=== PATIENT | male | born 1955 | race Caucasian/White ===

== ENCOUNTER 2016-06-21 17:44 | Observation (INO) | payer OTHER ==
[~2016-06-21] VITALS: Ht 182.9 cm; Wt 108.1 kg
[~2016-06-21 17:44] MED LIST: ONDANSETRON HCL 4 MG/2 ML VIAL IV PUSH ONE; PHENYLEPH/NS 1000 MCG/10 ML SYR IV ONE; PROPOFOL 200 MG/20 ML AMP IV ONE; ePHEDrine/NS 25 MG/5 ML SYR IV ONE
[2016-06-21 17:47] VITALS: BP 138/80; PULSE 84; RESP 20; TEMP 97.5; O2SAT 100
--- NOTE | 2016-06-21 17:54 | PD ---
Physical Exam Time Seen by Provider: 17:51 Narrative 60 year old presents with injury to L thumb from a table saw injury. Went to [facility], had xray, tetanus shot, morphine, reports "bone injury" and told to come here for hand sx evaluation. VSS Seen at triage desk. Awaiting bed placement. Data Data Last Documented VS Vital Signs Date Time Temp Pulse Resp B/P Pulse Ox O2 Delivery O2 Flow Rate FiO2 06/21/16 17:47 97.5 84 20 138/80 100 Room Air [facility] Medical Record Reviewed: Yes Supervised Visit with KARL: Yes Ren Alves Jun 21, 2016 17:54
[2016-06-21] MEDS ORDERED: SIMV20TA PO (18:06)
[2016-06-21] MEDS ORDERED: ASPI-110 PO (18:06)
[2016-06-21] MEDS ORDERED: ALLO300T2 PO (18:06)
[2016-06-21] MEDS ORDERED: ASPI81CH CHEW (18:07)
[2016-06-21] MEDS ORDERED: RANI150C PO (18:10)
[2016-06-21] MEDS ORDERED: SODIUM CHLORIDE 0.9% FLUSH 10 ML FLUSH IV FLUSH PRN ×2 (18:30→20:15)
--- NOTE | 2016-06-21 18:36 | PD ---
HPI Chief Complaint: Laceration/Skin Injury Time Seen by Provider: 18:19 Travel History International Travel<30 days: No Contact w/Intl Traveler<30days: No Traveled to known affect area: No History of Present Illness HPI 60-year-old male here by private vehicle for evaluation of laceration to left thumb. The patient reports that he accidentally cut his left thumb with a table saw today while at work. He went to [facility] where he had x-rays and was told that he needs a hand surgeon. Incentive waiting to be transferred , the patient decided to drive himself to our hospital. He denies any other injuries. Pain is moderate to severe, constant, worse with movement and palpation. Patient reports receiving tenderness and antibiotics at [facility] as well as x-rays. The patient is right-handed. PFSH Past Medical History High Cholesterol: Yes Diminished Hearing: Yes Medical other: Yes (GOUT) Immunizations Current: Yes Tetanus Vaccination: < 5 Years Influenza Vaccination: No Past Surgical History Other Surgery: Yes (VARICOSE VEIN REMOVED FROM LEFT LEG, MELANOMA REMOVED FROM CHEST) Social History Alcohol Use: Yes Tobacco Use: No Substance Use: No Allergies-Medications (Allergen,Severity, Reaction): Coded Allergies: No Known Allergies (Unverified , 06/21/16) Reported Meds & Prescriptions Reported Meds & Active Scripts Active Reported Ranitidine (Ranitidine HCl) 150 Mg Cap 150 Mg PO DAILY Aspirin 81 Mg Chew 81 Mg CHEW DAILY Simvastatin 20 Mg Tab 20 Mg PO DAILY Allopurinol 300 Mg Tab 300 Mg PO DAILY Review of Systems Except as stated in HPI: all other systems reviewed are Neg Physical Exam Narrative GENERAL: Well-developed, well-nourished, comfortable, no acute distress. SKIN: Focused skin assessment warm/dry. Deep horizontal laceration to the volar aspect of the left thumb over the IP joint with bone exposure, no active bleeding, no visible contaminants. HEAD: Atraumatic. Normocephalic. EYES: Pupils equal and round. No scleral icterus. No injection or drainage. ENT: No nasal bleeding or discharge. Mucous membranes pink and moist. NECK: Trachea midline. No JVD. CARDIOVASCULAR: Regular rate and rhythm. Capillary refill in distal left thumb is less than 2 seconds. RESPIRATORY: No accessory muscle use. Clear to auscultation. Breath sounds equal bilaterally. MUSCULOSKELETAL: Skin exam as above. Patient is unable to flex at the left thumb IP joint. He also has limited range of opposition in the left thumb. NEUROLOGICAL: Awake and alert. No obvious cranial nerve deficits. Motor grossly within normal limits. Normal speech. Patient reports sensation in distal left thumb, however states it feels numb. PSYCHIATRIC: Appropriate mood and affect; insight and judgment normal. Data Data Last Documented VS Vital Signs Date Time Temp Pulse Resp B/P Pulse Ox O2 Delivery O2 Flow Rate FiO2 06/21/16 17:47 97.5 84 20 138/80 100 Room Air Orders Basic Metabolic Panel (Bmp) (06/21/16 18:28) Complete Blood Count With Diff (06/21/16 18:28) Prothrombin Time / Inr (Pt) (06/21/16 18:28) Act Partial Throm Time (Ptt) (06/21/16 18:28) Iv Access Insert/Monitor (06/21/16 18:28) Ecg Monitoring (06/21/16 18:28) Oximetry (06/21/16 18:28) Sodium Chloride 0.9% Flush (Ns Flush) (06/21/16 18:30) Finger (Xrs2ddn) (06/21/16 ) Morphine Inj (Morphine Inj) (06/21/16 19:00) Labs Laboratory Tests Test 06/21/16 18:42 White Blood Count 12.0 TH/MM3 Red Blood Count 4.16 MIL/MM3 Hemoglobin 13.9 GM/DL Hematocrit 41.4 % Mean Corpuscular Volume 99.5 FL Mean Corpuscular Hemoglobin 33.4 PG Mean Corpuscular Hemoglobin 33.6 % Concent Red Cell Distribution Width 12.3 % Platelet Count 145 TH/MM3 Mean Platelet Volume 7.8 FL Neutrophils (%) (Auto) 86.8 % Lymphocytes (%) (Auto) 9.7 % Monocytes (%) (Auto) 2.8 % Eosinophils (%) (Auto) 0.3 % Basophils (%) (Auto) 0.4 % Neutrophils # (Auto) 10.4 TH/MM3 Lymphocytes # (Auto) 1.2 TH/MM3 Monocytes # (Auto) 0.3 TH/MM3 Eosinophils # (Auto) 0.0 TH/MM3 Basophils # (Auto) 0.0 TH/MM3 CBC Comment DIFF FINAL Differential Comment Prothrombin Time 11.4 SEC Prothromb Time International 1.0 RATIO Ratio Activated Partial 25.3 SEC Thromboplast Time Sodium Level 141 MEQ/L Potassium Level 4.1 MEQ/L Chloride Level 107 MEQ/L Carbon Dioxide Level 25.8 MEQ/L Anion Gap 8 MEQ/L Blood Urea Nitrogen 14 MG/DL Creatinine 1.00 MG/DL Estimat Glomerular Filtration 76 ML/MIN Rate Random Glucose 101 MG/DL Calcium Level 8.9 MG/DL MDM Medical Decision Making Medical Screen Exam Complete: Yes Emergency Medical Condition: Yes Differential Diagnosis Left thumb laceration, flexor tendon laceration, left thumb bony injury Narrative Course The patient has a deep laceration to the volar aspect of his left thumb over the IP joint with flexor tendon involvement. We will try to obtain records from [facility] to see which medications the patient received an to see if we can obtain a copy of their x-rays. In the meantime we will order our own x-rays here. 7:00 PM: Case discussed with on-call hand surgeon Dr. Asif who plans to take the patient to the operating room. She recommends admission to the medical service. Case discussed with hospitalist Dr. Serra who will admit the patient to her service. Diagnosis Primary Impression: Laceration of left thumb Qualified Code: S61.012A - Laceration of left thumb, initial encounter Additional Impression: Flexor tendon laceration of finger with open wound Qualified Code: S56.129A - Flexor tendon laceration of finger with open wound , initial encounter Admitting Information Admitting Physician Requests: Observation Sami Stone MD Jun 21, 2016 18:36
[2016-06-21 18:51] LABS: AUTOMATED NEUTROPHIL # 10.4 TH/MM3 (1.8-7.7); BASOPHIL % 0.4 % (0.0-2.0); EOSINOPHIL % 0.3 % (0.0-4.0); HEMATOCRIT 41.4 % (39.0-51.0); HEMO FLAGS DIFF FINAL; LYMPH % 9.7 % (9.0-44.0); LYMPHOCYTE # 1.2 TH/MM3 (1.0-4.8); MEAN CELL VOLUME 99.5 FL (80.0-100.0); MEAN CORPUSCULAR HEMOGLOBIN 33.4 PG (27.0-34.0); MEAN CORPUSCULAR HGB CONC 33.6 % (32.0-36.0); MONO % 2.8 % (0.0-8.0); NEUT % 86.8 % (16.0-70.0); PLATELET COUNT 145 TH/MM3 (150-450); RED BLOOD COUNT 4.16 MIL/MM3 (4.50-5.90); RED CELL DISTRIBUTION WIDTH 12.3 % (11.6-17.2)
[2016-06-21] MEDS ORDERED: MORPHINE SULFATE 4 MG/ML INJ IV PUSH ONE (19:00)
[2016-06-21 19:05] LABS: APTT (PATIENT) 25.3 SEC (24.3-30.1); PROTHROMBIN TIME - PATIENT 11.4 SEC (9.8-11.6)
[2016-06-21 19:13] LABS: BICARBONATE 25.8 MEQ/L (21.0-32.0); POTASSIUM 4.1 MEQ/L (3.5-5.1)
--- NOTE | 2016-06-21 19:34 | RADRPT ---
EXAM DATE/TIME: 06/21/2016 18:57 [place] COMPARISON: No previous studies available for comparison. INDICATIONS : Left thumb laceration today from a table saw. MEDICAL HISTORY : None. SURGICAL HISTORY : None. ENCOUNTER: Initial ACUITY: 1 day PAIN SCORE: 9/10 LOCATION: Left thumb FINDINGS: 2 views of the left thumb were obtained and demonstrate overlying artifact from bandages. There is an apparent soft tissue laceration adjacent to the distal phalanx with no definite radiopaque foreign b tripp. There is no acute fracture or malalignment. There is soft tissue swelling. CONCLUSION: 1. Soft tissue swelling apparent laceration with no definite radiopaque foreign body. 2. Overlying artifact from bandages limiting the sensitivity. Fausto Cedillo MD on June 21, 2016 at 19:31 Board Certified Radiologist. This report was verified electronically.
[2016-06-21] MEDS ORDERED: MORPHINE SULFATE 4 MG/ML INJ IV PUSH PRN (20:15)
[2016-06-21] MEDS ORDERED: ONDANSETRON HCL 4 MG/2 ML VIAL IVP PRN (20:15)
[2016-06-21] MEDS ORDERED: NALOXONE HCL 0.4 MG/ML AMP IV PRN (20:15)
[2016-06-21] MEDS: FAMOTIDINE 20 MG TAB PO SCH (21:00)
[2016-06-21] MEDS: SODIUM CHLORIDE 0.9% FLUSH 10 ML FLUSH IV FLUSH SCH (21:00)
[2016-06-21] MEDS ORDERED: BACITRACIN TOP OINT 15 GM TUBE ONE (21:25)
[2016-06-21] MEDS ORDERED: LIDOCAINE HCL 1% 50 ML VIAL ONE (21:25)
[2016-06-21] MEDS ORDERED: BUPIVACAINE HCL PF 0.5% 30 ML VIAL ONE (21:25)
[2016-06-21] MEDS ORDERED: ACETAMINOPHEN 1000 MG/100 ML VIAL IV ONE (21:55)
[2016-06-21] MEDS ORDERED: fentaNYL CITRATE 250 MCG/5 ML AMP ONE (21:55)
[2016-06-21] MEDS ORDERED: MIDAZOLAM HCL 2 MG/2 ML VIAL ONE (21:55)
[2016-06-21] MEDS ORDERED: ceFAZolin 2 GM PREMIX 50 ML ONE (22:08)
[2016-06-21] MEDS ORDERED: NEOMYCIN/POLYMYXIN 1 ML G.U. IRRIGANT TOPICAL ONE (22:25)
[2016-06-21] MEDS ORDERED: LIDOCAINE HCL 2% 50 ML VIAL INFIL ONE (23:30)
[2016-06-22] MEDS ORDERED: DO NOT ADM ANY ANTICOAGULANT DRUGS PRN (01:05)
[2016-06-22 02:00] VITALS: BP 141/77; PULSE 79; RESP 16; TEMP 97.5; O2SAT 96
[2016-06-22] MEDS ORDERED: Vancomycin Consult Pharmacy 1 EA OTHER SCH (02:15)
--- NOTE | 2016-06-22 02:15 | PD.ORT.PN ---
Subjective Subjective Remarks Patient reports pain controlled. Objective Vitals Vital Signs Date Time Temp Pulse Resp B/P Pulse Ox O2 Delivery O2 Flow Rate FiO2 06/21/16 19:32 20 06/21/16 17:47 97.5 84 20 138/80 100 Room Air I/O 06/21/16 06/21/16 06/21/16 06/22/16 06/22/16 06/22/16 07:00 15:00 23:00 07:00 15:00 23:00 Intake Total 1200 ml Output Total 5 ml Balance 1195 ml Intake Other 1200 ml Output Estimated Blood Loss 5 ml Result Diagram: 06/21/16 1842 06/21/16 1842 Other Results Laboratory Tests Test 06/21/16 18:42 Prothrombin Time 11.4 SEC (9.8-11.6) Prothromb Time International 1.0 RATIO Ratio Objective Remarks <2 sec capillary refill left thumb, patient instructed not to move left thumb, dorsal blocking splint in place Assessment & Plan Assessment and Plan POD0 s/p I&D left thumb open IP joint, repair flexor pollicus longus, repair ulnar digital nerve with nerve conduit, capsule repair -Patient instructed NOT to attempt to move left thumb in splint, must keep splint in place until followup, NWB left thumb, family educated about 3 months of flexor tendon protocol for recovery -ASA 325mg to improve blood flow to left thumb as well as eladio hugger to left arm tonight, okay to remove tomorrow -continue IV Ab for 24hrs, then okay to d/c on oral antibiotics -followup in office Narcisa Lomeli MD Jun 22, 2016 02:14
[2016-06-22] MEDS ORDERED: VANCOMYCIN INJ 2,000 MG in SODIUM CHLORID 0.9% 500 ML INJ 500 ML IV ONE (03:00)
[2016-06-22] MEDS: PIPERACIL-TAZO 4.5 GM PREMIX 100 ML IV SCH ×3 (03:12→14:16)
[2016-06-22 04:00] VITALS: BP 142/80; PULSE 77; RESP 18; TEMP 98.1; O2SAT 97
--- NOTE | 2016-06-22 05:14 | MB ---
cc: CHARITY P[facility]TMAN DATE OF CONSULTATION: 06/21/2016 REASON FOR CONSULTATION Table saw injury, left thumb. HISTORY OF PRESENT ILLNESS Graeme Rousseau is a pleasant 60-year-old right-hand dominant male who states that this afternoon around approximately 2:00 p.m. he sustained a table saw injury to the left thumb. He initially presented to an outside facility and then presented here after he learned they did not have a hand surgeon broadcast operations technician. He denies prior significant injury to the left hand. He did have a melanoma removed from his chest by Dr. Lr and has done well from this standpoint without metastasis. He reports paresthesias over the ulnar aspect of the thumb. He reports pain over the thumb. He states this did occur at work when he was working on a project. He states he does have workers compensation. He states that the wound was not cleaned at the outside facility. He states no other injuries at the time and states that he was actually finishing the job and getting ready to turn off his saw. PAST MEDICAL HISTORY 1. Gout. 2. Melanoma without metastasis. PAST SURGICAL HISTORY 1. Melanoma from the chest. 2. Varicose vein removed from the leg SOCIAL HISTORY The patient reports social alcohol use, denies tobacco or drug use. He does work. ALLERGIES No known drug allergies. MEDICATIONS 1. Ranitidine. 2. Aspirin 81. 3. Simvastatin. 4. Allopurinol. PHYSICAL EXAMINATION GENERAL: The patient is alert and oriented. VITAL SIGNS: The vital signs are stable. LEFT THUMB: The dressing is removed from the left thumb. The patient had less than two-second capillary refill to the tip of the thumb. He has a horizontal laceration at the level of the left thumb IP joint. Absent sensation on the ulnar side of the thumb. Sensation present but decreased on the radial side of the thumb. The patient is unable to flex the thumb at the IP joint. Function intact of EPL. IMAGING X-rays of the left thumb show no dislocation or displaced fracture. There is concern for possible avulsion off of the distal phalanx. ASSESSMENT AND PLAN A 60-year-old male with a table saw injury to the left thumb with concern for laceration of the flexor pollicis longus, digital nerves, digital arteries. I recommended taking the patient to the operating room at the earliest available time for irrigation and debridement, repair of any injured structures including flexor tendon, digital nerves, digital arteries, and he elected to proceed. He understands that if the flexor tendon is completely lacerated this is usually approximately a three-month recovery and he must adhere to a very specific protocol to avoid rupturing the tendon. He understands that with his injury to the nerve, specifically with a table saw which he states was very jagged, he may never regain sensation to the finger and he is at risk for a neuroma. He elects to proceed. He understands he will be wearing a splint on the left thumb for several weeks to months. Other risks were explained which include but not limited to wound complications, infection, again persistent paresthesias, stiffness, pain, PE, DVT, amputation of the thumb, and he elects to proceed. MD NAA Novoa/JULIET /1:55 AM /4:56 AM MTDAnge
[2016-06-22] MEDS ORDERED: MORPHINE SULFATE 4 MG/ML INJ IV PUSH PRN (05:45)
--- NOTE | 2016-06-22 05:50 | HHI.HP ---
HPI Service [facility] Primary Care Physician Nikolas Rodriguez DO Admission Diagnosis left thumb laceration, flexor tendon laceration Diagnoses: Chief Complaint: Left thumb laceration Travel History International Travel<30 Days: No Contact w/Intl Traveler <30 Da: No Traveled to Known Affected Are: No History of Present Illness This is a pleasant 60 year old male patient with a past medical history which includes gout, hyperlipidemia and GERD. Patient was in his normal state of jayce until 06/21/16 approximately 2:00 p.m. when he sustained a table saw injury to the left thumb. Patient initially presented to an outside facility and then presented to [facility] after he learned they did not have a hand surgeon ton container filler. Upon arrival patient reported paresthesias over the ulnar aspect of the thumb. He states no other injuries. Patient is seen in hospital room post operatively. Reports tolerable post-op pain at this time. Denies SOB, chest pain, N/V/D fevers or chills. X ray left hand revealed: 1. Soft tissue swelling apparent laceration with no definite radiopaque foreign body. 2. Overlying artifact from bandages limiting the sensitivity. Review of Systems Except as stated in HPI: all other systems reviewed are Neg Past Family Social History Past Medical History Gout, hyperlipidemia and GERD Past Surgical History melanoma removed Reported Medications Ranitidine (Ranitidine HCl) 150 Mg Cap 150 Mg PO DAILY Aspirin 81 Mg Chew 81 Mg CHEW DAILY Simvastatin 20 Mg Tab 20 Mg PO DAILY Allopurinol 300 Mg Tab 300 Mg PO DAILY Allergies: Coded Allergies: No Known Allergies (Unverified , 06/21/16) Active Ordered Medications Current Medications Medications (Trade) Dose Ordered Sig/Reagan Route Start Time Stop Time Status Last Admin (NS Flush) 2 ml UNSCH PRN IV FLUSH 06/21/16 20:15 (NS Flush) 2 ml BID IV FLUSH 06/21/16 21:00 (Zofran Inj) 4 mg Q6H PRN IVP 06/21/16 20:15 (Narcan Inj) 0.4 mg UNSCH PRN IV 06/21/16 20:15 (Morphine Inj) 2 mg Q3H PRN IV PUSH 06/21/16 20:15 06/22/16 03:06 (Zyloprim) 300 mg DAILY PO 06/22/16 09:00 (Pepcid) 20 mg BID PO 06/21/16 21:00 (Pravachol) 40 mg DAILY PO 06/22/16 09:00 Miscellaneous Information ALL NURSING DEPARTME... UNSCH PRN .XX 06/22/16 01:05 06/23/16 01:04 Aspirin 325 mg 325 mg DAILY PO 06/22/16 09:00 Pharmacy Profile Note 0 ml @ 0 mls/hr UNSCH OTHER 06/22/16 02:15 (Zosyn 4.5 Gm Premix) 100 ml @ 200 mls/hr Q6H IV 06/22/16 03:00 06/22/16 03:12 Family History Father had AAA Mother 88 alive and health Social History Quit smoking 2-3 months ago ETOH 3 times per week 3-4 beers each time Physical Exam Vital Signs Vital Signs Date Time Temp Pulse Resp B/P Pulse Ox O2 Delivery O2 Flow Rate FiO2 06/22/16 04:13 16 06/22/16 04:00 98.1 77 18 142/80 97 06/22/16 02:00 97.5 79 16 141/77 96 06/22/16 01:45 75 16 146/91 98 Nasal Cannula 2 06/22/16 01:30 79 16 142/92 98 Nasal Cannula 2 06/22/16 01:15 76 16 144/75 97 Nasal Cannula 2 06/22/16 01:05 97.9 84 17 132/79 94 Nasal Cannula 2 06/21/16 19:32 20 06/21/16 17:47 97.5 84 20 138/80 100 Room Air Physical Exam GENERAL: This is a well-nourished, well-developed patient, in no apparent distress. SKIN: No rashes, ecchymoses or lesions. Cool and dry. post op dressing L hand with sling present EYES: Extraocular motions intact. No scleral icterus. No injection or drainage. CARDIOVASCULAR: Regular rate and rhythm without murmurs, gallops, or rubs. RESPIRATORY: Clear to auscultation. Breath sounds equal bilaterally. No wheezes , rales, or rhonchi. GASTROINTESTINAL: Abdomen soft, non-tender, nondistended. No hepato-splenomegaly , or palpable masses. No guarding. MUSCULOSKELETAL: Extremities without clubbing, cyanosis, or edema. No joint tenderness, effusion, or edema noted. No calf tenderness. Negative Homans sign bilaterally. NEUROLOGICAL: Awake and alert. No focal deficits. Motor and sensory grossly within normal limits. Five out of 5 muscle strength in all muscle groups. Normal speech. Laboratory Laboratory Tests Test 06/21/16 18:42 White Blood Count 12.0 Red Blood Count 4.16 Hemoglobin 13.9 Hematocrit 41.4 Mean Corpuscular Volume 99.5 Mean Corpuscular Hemoglobin 33.4 Mean Corpuscular Hemoglobin 33.6 Concent Red Cell Distribution Width 12.3 Platelet Count 145 Mean Platelet Volume 7.8 Neutrophils (%) (Auto) 86.8 Lymphocytes (%) (Auto) 9.7 Monocytes (%) (Auto) 2.8 Eosinophils (%) (Auto) 0.3 Basophils (%) (Auto) 0.4 Neutrophils # (Auto) 10.4 Lymphocytes # (Auto) 1.2 Monocytes # (Auto) 0.3 Eosinophils # (Auto) 0.0 Basophils # (Auto) 0.0 CBC Comment DIFF FINAL Differential Comment Prothrombin Time 11.4 Prothromb Time International 1.0 Ratio Activated Partial 25.3 Thromboplast Time Sodium Level 141 Potassium Level 4.1 Chloride Level 107 Carbon Dioxide Level 25.8 Anion Gap 8 Blood Urea Nitrogen 14 Creatinine 1.00 Estimat Glomerular Filtration 76 Rate Random Glucose 101 Calcium Level 8.9 Result Diagram: 06/21/162 06/21/16 1842 Imaging Last Impressions Finger X-Ray 06/21/16 0000 Signed Impressions: Service Date/Time: Tuesday, June 21, 2016 18:57 - CONCLUSION: 1. Soft tissue swelling apparent laceration with no definite radiopaque foreign body. 2. Overlying artifact from bandages limiting the sensitivity. Fausto Cedillo MD Assessment and Plan Assessment and Plan This is a pleasant 60 year old male patient with a past medical history which includes gout, hyperlipidemia and GERD. Patient was in his normal state of jayce until 06/21/16 approximately 2:00 p.m. when he sustained a table saw injury to the left thumb. Patient initially presented to an outside facility and then presented to [facility] after he learned they did not have a hand surgeon ton container filler. Upon arrival patient reported paresthesias over the ulnar aspect of the thumb. X ray left hand revealed: 1. Soft tissue swelling apparent laceration with no definite radiopaque foreign body. 2. Overlying artifact from bandages limiting the sensitivity. Laceration of left thumb Flexor tendon laceration of finger with open wound S/P I&D left thumb open IP joint, repair flexor pollicus longus, repair ulnar digital nerve with nerve conduit, capsule repair Per hand surgery- Patient instructed NOT to attempt to move left thumb in splint, must keep splint in place until followup, NWB left thumb, family educated about 3 months of flexor tendon protocol for recovery ASA 325mg to improve blood flow to left thumb as well as eladio hugger to left arm tonight, okay to remove tomorrow continue IV Ab for 24hrs, then okay to d/c on oral antibiotics followup in office with hand surgery continue IV abx (Zosyn and Vancomycin- with pharmacy to dose) aspirin 325 mg daily dressing changes per hand surgery Hyperlipidemia- continue hoe medication pravastatin 40 mg daily Gout hx not in acute exacerbation- continue allopurinol DVT prophylaxis SCDs Discussed with ER provider, nursing, patient and at bedside Written by Shavonne Tatum, acting as scribe for Dr. Serra on 06/22/16 at 06: 14. This note was transcribed by scribe [Shvaonne Tatum]. I, Dr. Miki Serra personally performed the history, physical exam, and medical decision making; and confirmed the accuracy of the information in the transcribed note. Authenticated by Dr. Miki Serra on 06/22/16 at 06:14. Shavonne Tatum Jun 22, 2016 05:50 Miki Serra MD July 11, 2016 05:01
--- NOTE | 2016-06-22 07:56 | MP ---
cc: NARCISA ASIF DATE OF SURGERY 06/21/2016 PREOPERATIVE DIAGNOSIS Table saw injury left thumb. POSTOPERATIVE DIAGNOSIS 1. Open interphalangeal joint left thumb. 2. Complete laceration flexor pollicis longus left thumb. 3. Complete laceration ulnar digital nerve at the level of the bifurcation left thumb. PROCEDURE 1. Irrigation debridement open joint left thumb interphalangeal joint. 2. Repair of capsule left thumb interphalangeal joint. 3. Repair of flexor pollicis longus left thumb. 4. Repair of ulnar digital nerve left thumb using a nerve conduit. SURGEON Dr. Narcisa Asif ANESTHESIA General and local TOURNIQUET TIME 34 minutes at 250 mmHg IMPLANTS Nerve conduit 2 mm INDICATIONS FOR PROCEDURE Graeme Rousseau is a is a 60-year-old male who sustained a table saw injury to his left thumb earlier today. There was concern for tendon and nerve injury and I recommended emergent surgical intervention and he elected to proceed. The risks were explained, but not limited to amputation of the finger, stiffness, pain, paresthesias, need for additional surgeries, neuroma, PE, DVT and he elected to proceed. DESCRIPTION OF PROCEDURE The patient was identified in the preoperative holding area and the correct extremity was marked. The patient was taken to the operating room where anesthesia was induced. The left upper extremity was prepped and draped in a normal sterile fashion, with care taken to not hyperextend the thumb. Next, the wound was irrigated with three liters of antibiotic saline. There was a chip on the radial aspect of the thumb distal phalanx. This was rongeured back to smooth bone. There was no complete fracture. The open joint was then irrigated. The capsule was closed with 4-0 PDS. The flexor tendon was completely lacerated again just distal to the IP joint. This was retrieved proximally without significant extension of the laceration although the laceration was extended slightly in a proximal and distal direction in a Yassine type fashion. The flexor pollicis longus was repaired with 4-0 FiberWire with initially a Nielsen suture, then a mattress and then with 6-0 nylon for an epitendinous repair. This held the thumb in place in slight flexion with no evidence of gapping. Attention was then turned to the ulnar digital nerve. There was complete laceration of the ulnar digital nerve with a good proximal stump, but the distal stump was at the level of the bifurcation with some fraying at the end of the nerve. The decision was made to approximate the nerve with a nerve conduit 2 mm and 8-0 nylon. I discussed with the patient postoperatively that he may continue to have absent sensation on the finger or a neuroma and may need additional surgery. The tourniquet was released prior to repair of the nerve to ensure that the nerve was repaired. There was also laceration of the ulnar digital nerve, but as there was less than 2-second capillary refill to the finger, as well as dopplerable flow, the decision was made not to repair the ulnar digital artery due to significant stripping and ribbon signs. This was cauterized. With the thumb held in a flexed position, the skin was closed with a 4-0 chromic. Bacitracin and Adaptic was placed, as well as a dorsal blocking splint with the thumb in flexion. 2% lidocaine with no epinephrine was used to perform a digital block over the thumb. The patient was awoken from anesthesia without any complications. He will remain admitted to the hospital for IV antibiotics which were also given preoperatively, as well as aspirin and close followup. I will see him this week in conjunction with our therapist for discussion of flexor tendon protocol, as well as a custom splint. This was discussed with his family. He has a high risk for rupture of the repair, stiffness, paresthesias, neuroma formation, persistent paresthesias and infection. MD NAA Novoa/VANDANA /2:01 AM /7:45 AM [place]
[2016-06-22 08:00] VITALS: BP 115/56; PULSE 73; RESP 18; TEMP 97.8; O2SAT 98
[2016-06-22 08:30] VITALS: O2SAT 97
[2016-06-22] MEDS ORDERED: ASPIRIN 81 MG CHEW TAB CHEW SCH (09:00)
[2016-06-22] MEDS ORDERED: ALLOPURINOL 300 MG TAB PO SCH (09:00)
[2016-06-22] MEDS ORDERED: PRAVASTATIN SOD 40 MG TAB PO SCH (09:00)
[2016-06-22] MEDS ORDERED: ASPIRIN 325 MG TAB PO SCH (09:00)
[2016-06-22] MEDS: FAMOTIDINE 20 MG TAB PO SCH (09:26)
[2016-06-22] MEDS: SODIUM CHLORIDE 0.9% FLUSH 10 ML FLUSH IV FLUSH SCH (09:26)
[2016-06-22] MEDS: oxyCODONE/ACETAMINOPHEN 7.5 MG/325 MG TAB PO PRN ×2 (09:35→16:53)
[2016-06-22 10:06] LABS: AUTOMATED NEUTROPHIL # 9.7 TH/MM3 (1.8-7.7); BASOPHIL % 0.2 % (0.0-2.0); EOSINOPHIL % 0.1 % (0.0-4.0); HEMATOCRIT 39.4 % (39.0-51.0); HEMO FLAGS DIFF FINAL; LYMPH % 8.7 % (9.0-44.0); LYMPHOCYTE # 0.9 TH/MM3 (1.0-4.8); MEAN CELL VOLUME 98.7 FL (80.0-100.0); MEAN CORPUSCULAR HGB CONC 34.4 % (32.0-36.0); MONO % 2.6 % (0.0-8.0); NEUT % 88.4 % (16.0-70.0); PLATELET COUNT 152 TH/MM3 (150-450); RED CELL DISTRIBUTION WIDTH 12.7 % (11.6-17.2); WHITE BLOOD COUNT 10.9 TH/MM3 (4.0-11.0)
[2016-06-22 10:34] LABS: BICARBONATE 24.5 MEQ/L (21.0-32.0); POTASSIUM 3.5 MEQ/L (3.5-5.1)
[2016-06-22 12:00] VITALS: BP 135/73; PULSE 76; RESP 20; TEMP 97.6; O2SAT 96
--- NOTE | 2016-06-22 12:35 | HHI.PR ---
Subjective Remarks Follow-up laceration of left thumb 06/22/16-patient seen and examined, states he would not be discharged if pain not adequately controlled. Otherwise stable and afebrile Objective Vitals Vital Signs Date Time Temp Pulse Resp B/P Pulse Ox O2 Delivery O2 Flow Rate FiO2 06/22/16 08:30 97 Nasal Cannula 21 06/22/16 08:00 97.8 73 18 115/56 98 06/22/16 04:13 16 06/22/16 04:00 98.1 77 18 142/80 97 06/22/16 02:00 97.5 79 16 141/77 96 06/22/16 01:45 75 16 146/91 98 Nasal Cannula 2 06/22/16 01:30 79 16 142/92 98 Nasal Cannula 2 06/22/16 01:15 76 16 144/75 97 Nasal Cannula 2 06/22/16 01:05 97.9 84 17 132/79 94 Nasal Cannula 2 06/21/16 19:32 20 06/21/16 17:47 97.5 84 20 138/80 100 Room Air I/O 06/21/16 06/21/16 06/21/16 06/22/16 06/22/16 06/22/16 07:00 15:00 23:00 07:00 15:00 23:00 Intake Total 1680 ml Output Total 5 ml Balance 1675 ml Intake Oral 480 ml Other 1200 ml Output Estimated Blood Loss 5 ml # Voids 2 # Bowel Movements 0 Result Diagram: 06/22/16 0843 06/22/16 0843 Imaging Last Impressions Finger X-Ray 06/21/16 0000 Signed Impressions: Service Date/Time: Tuesday, June 21, 2016 18:57 - CONCLUSION: 1. Soft tissue swelling apparent laceration with no definite radiopaque foreign body. 2. Overlying artifact from bandages limiting the sensitivity. Fausto Cedillo MD Objective Remarks GENERAL: NAD SKIN: Warm and dry. HEAD: Normocephalic. EYES: No scleral icterus. No injection or drainage. NECK: Supple, trachea midline. No JVD or lymphadenopathy. CARDIOVASCULAR: Regular rate and rhythm without murmurs, gallops, or rubs. RESPIRATORY: Breath sounds equal bilaterally. No accessory muscle use. GASTROINTESTINAL: Abdomen soft, non-tender, nondistended. MUSCULOSKELETAL: No cyanosis, or edema. Dressing over left hand BACK: Nontender without obvious deformity. No CVA tenderness. A/P Problem List: (1) Laceration of left thumb ICD Code: S61.012A Status: Acute (2) Flexor tendon laceration of finger with open wound ICD Code: S56.129A Status: Acute Assessment and Plan 60-year-old man with Laceration of left thumb Flexor tendon laceration of finger with open wound S/P I&D left thumb open IP joint, repair flexor pollicus longus, repair ulnar digital nerve with nerve conduit, capsule repair Per hand surgery- Patient instructed NOT to attempt to move left thumb in splint, must keep splint in place until followup, NWB left thumb, family educated about 3 months of flexor tendon protocol for recovery ASA 325mg to improve blood flow to left thumb continue IV Ab for 24hrs, then okay to d/c on oral antibiotics followup in office with hand surgery continue IV abx (Zosyn and Vancomycin- with pharmacy to dose) however will switch to by mouth antibiotic on discharge aspirin 325 mg daily Pain management accordingly dressing changes per hand surgery Hyperlipidemia- continue pravastatin 40 mg daily Gout hx not in acute exacerbation- continue allopurinol DVT prophylaxis SCDs Patient will be discharged home today 06/22/16 after receiving last dose of antibiotics at 5 PM Discharge Planning Discharge patient to home Condition on discharge: Improved Regular Diet as tolerated Ad Pina activity Rx written:see EMR Follow-up with primary care physician in 1 week Follow-up with hand surgery 06/23/16 Problem Qualifiers (1) Laceration of left thumb: Qualified Code: S61.012A - Laceration of left thumb, initial encounter (2) Flexor tendon laceration of finger with open wound: Qualified Code: S56.129A - Flexor tendon laceration of finger with open wound, initial encounter Lorne Anglin MD Jun 22, 2016 12:35
[2016-06-22] MEDS ORDERED: MORP1TAB25 PO (12:40)
[2016-06-22] MEDS ORDERED: SENN1TAB PO (12:40)
[2016-06-22] MEDS ORDERED: DOCUSATE SODIUM 50 MG/SENNA 8.6 MG TAB PO PRN (12:45)
[2016-06-22] MEDS ORDERED: BACT800T5 PO (13:11)
[2016-06-22] MEDS ORDERED: OXYC1TAB35 PO (13:12)
[2016-06-22] MEDS ORDERED: MORPHINE SULFATE 30 MG CONTROLLED RELEASE TAB PO SCH (14:00)
[2016-06-22 16:00] VITALS: BP 131/75; PULSE 72; RESP 20; TEMP 98.1; O2SAT 97
[2016-06-22] MEDS ORDERED: VANCOMYCIN INJ 1,500 MG in SODIUM CHLORID 0.9% 500 ML INJ 500 ML IV SCH (18:00)
[2016-06-24] MEDS ORDERED: PHARMACY ORDERED LAB ONE (05:45)
== END 2016-06-22 19:30 | disposition home or self-care (01) ==
LOC: NEPD 17:44 → NEDA 19:35 → HPAC 22:22 → N04A 06-22 02:00
PROVIDERS: ADMIT Hospitalist; ATTEND Hospitalist
DX: S66.022A Laceration of long flexor muscle, fascia and tendon of left thumb at wrist and hand level, initial encounter (principal); S64.02XA Injury of ulnar nerve at wrist and hand level of left arm, initial encounter; S69.82XA Other specified injuries of left wrist, hand and finger(s), initial encounter; E78.00 Pure hypercholesterolemia, unspecified; H91.90 Unspecified hearing loss, unspecified ear; M10.9 Gout, unspecified; K21.9 Gastro-esophageal reflux disease without esophagitis; E78.5 Hyperlipidemia, unspecified; E66.9 Obesity, unspecified; Z68.32 Body mass index [BMI] 32.0-32.9, adult; W31.2XXA Contact with powered woodworking and forming machines, initial encounter; Z85.820 Personal history of malignant melanoma of skin; Z79.82 Long term (current) use of aspirin; Y92.69 Other specified industrial and construction area as the place of occurrence of the external cause; Y99.0 Civilian activity done for income or pay
CPT/HCPCS: 01810; 26350; 26535; 64910; 73140; 80048; 85025; 85610; 85730; 96374; 99284; C9352; G0378; J0131; J0690; J2250; J2270; J2370; J2405; J2543; J3010; J3370; J7040